=== PATIENT | male | born 2005 | race Hispanic/Latino ===

== ENCOUNTER 2025-01-26 21:33 | Emergency (ER) | payer MEDICAID, OTHER ==
[~2025-01-26] VITALS: Ht 180.3 cm; Wt 157.9 kg
[2025-01-26 21:59] LABS: SARS-CoV-2, RNA, NAAT NEGATIVE SARS CoV-2 (NEGATIVE)
[2025-01-26 22:08] LABS: INFLUENZA TYPE A Negative For Type A (NEGATIVE); INFLUENZA TYPE B Negative For Type B (NEGATIVE)
--- NOTE | 2025-01-26 23:45 | NUR ---
ASSUMED PT CARE
[2025-01-26] MEDS ORDERED: IOHEXOL 350 MG/ML 100ML INFUS..BTL IV ONE (23:56)
[2025-01-27 00:04] VITALS: PULSE 96; RESP 18
[2025-01-27] MEDS: ALBUTEROL 0.083% 2.5 MG/3 ML INH IH ONE (00:04)
--- NOTE | 2025-01-27 00:08 | ERN ---
ED Note History of Present Illness Stated Complaint: C/O SOB Chief Complaint: Shortness of Breath Time Seen by MD: 21:39 Dictation: This is a 19-year-old male who is extremely obese presents to the emergency room with his mother with complaints of shortness of breath for the past 2 weeks. He stated that he is short of breath all the time even when he is sitting and feels like he does not get enough air into the lungs. He denied any fever chills or rigors. No cough sputum or hemoptysis. He does not have a history of hypertension or any other comorbidities other than ADHD for which he used to take a stimulant. Since his graduation from high school, mother indicates that he is not on any stimulant Patient and mother and to do admit to gaining more weight. Patient's mother indicated that he is quite sedentary and place video games all day and night Temperature 98.6 pulse 93 respirations 20 blood pressure 144/89 with a pulse oximetry of 100% on room air Allergies: Coded Allergies: No Known Drug Allergies (Unverified Allergy, Unknown, 01/26/25) Home Meds Active Scripts Albuterol Sulfate (Ventolin Hfa/Proventil Hfa/Proair Hfa) 90 Mcg Puff, 1-2 PUFF IH Q4H PRN for SHORTNESS OF BREATH for 5 Days, #1 INH 0 Refills PHARMACY TO DISPENSE 1 INHALER FOR USE Prov:ZOEY CONDON MD 01/27/25 Prednisone (Prednisone) 20 Mg Tablet, 1 TAB PO AD for 6 Days, #14 TAB 0 Refills TAKE 1 TAB BY MOUTH THREE TIMES PER DAY X3 DAYS, THEN TAKE 1 TAB BY MOUTH TWICE A DAY X2 DAYS, THEN TAKE 1 TAB BY MOUTH ONCE A DAY X1 DAY. Prov:ZOEY CONDON MD 01/27/25 Past Medical History Past Medical History: Other Additional Past Medical Hx: HX OF ADHD Surgical History: None Family History: Negative Social History: Negative RN Note Reviewed/Agreed w/PFSH: Yes Review of System Dictation Constitutional: Negative for fever,chills, and weight loss Eyes: Negative for injury, pain,redness, and discharge ENT: Negative for injury,pain or swelling Cardiovascular: Negative for chest pain, palpitations, and edema Respiratory: Positive for shortness of breath, denied cough, and wheezing, Abdomen/GI: Negative for abdominal pain, nausea, vomiting, diarrhea, and constipation Back: Negative for injury and pain : Negative for injury, bleeding and discharge MS/Extremity: Negative for injury and deformity Skin: Negative for rash, and discoloration Neuro: Negative for headache, weakness, numbness, tingling, and seizure Psych: Negative for suicide ideation, homicidal ideation, and hallucinations Initial Vital Sign VS Vital Signs Date Time Temp Pulse Resp B/P (MAP) Pulse Ox O2 Delivery O2 Flow Rate FiO2 01/26/25 21:34 98.6 93 20 144/89 100 Room Air 01/26/25 23:48 0 21 Physical Exam Dictation General: awake, alert, NAD extremely obese Head/Face: Normocephalic, atraumatic Eyes: PERRL, EOMI, vision at baseline ENT: oral cavity clear, TMs clear, no signs of infection Neck: Trachea midline, supple, no nuchal rigidity Cardiovascular: RRR, normal S1/S2, No MRGs, no JVD Respiratory: Decreased air entry with prolonged expiratory phase, no respiratory distress, No rales or wheezes Abdomen: Soft, non-tender, non-distended, normal bowel sounds, no guarding or rebound. Skin: Warm, dry, normal turgor, no rash MS/Extremity: Pulses equal, no cyanosis, neurovascular intact, FROM Neuro: COAx4, GCS 15, strength 5/5, CN 2-12 intact, normal cerebellar exam, normal gait, Psych: Generally anxious Extremities-trace edema without any palpable cords, Homans sign is negative Results (Laboratory/Radiology) Laboratory/Radiology Laboratory Tests Test 01/26/25 21:37 01/27/25 00:12 Influenza Type A Antigen Negative For Type A Influenza Type B Antigen Negative For Type B SARS-CoV-2, RNA, NAAT NEGATIVE SARS CoV-2 White Blood Count 10.4 K/uL (4.8-10.8) Red Blood Count 5.34 MIL/uL (4.50-6.20) Hemoglobin 15.1 g/dL (14.0-18.0) Hematocrit 45.7 % (42-54) Mean Corpuscular Volume 85.6 fL (80-100) Mean Corpuscular Hemoglobin 28.3 pg (27.0-33.0) Mean Corpuscular Hemoglobin Concent 33.0 g/dL (32.0-36.0) Red Cell Distribution Width 13.1 % (11.0-15.5) Platelet Count 333 K/uL (130-400) Mean Platelet Volume 10.4 fL (7.5-10.5) Immature Granulocyte % (Auto) 0.4 % (0-1) Neutrophils (%) (Auto) 60.3 % (40.0-77.0) Lymphocytes (%) (Auto) 30.7 % (21.0-51.0) Monocytes (%) (Auto) 5.9 % (3.0-13.0) Eosinophils (%) (Auto) 2.0 % (0.0-8.0) Basophils (%) (Auto) 0.7 % (0.0-5.0) Neutrophils # (Auto) 6.2 K/uL (1.8-7.7) Lymphocytes # (Auto) 3.2 K/uL (1.0-4.8) Monocytes # (Auto) 0.6 K/uL (0.1-1.0) Eosinophils # (Auto) 0.21 K/uL (0.00-0.70) Basophils # (Auto) 0.07 K/uL (0.00-0.20) Absolute Immature Granulocyte (auto 0.04 K/uL (0-1) Nucleated Red Blood Cells 0.0 % (0.0-0.19) Sodium Level 142 mmol/L (136-145) Potassium Level 3.7 mmol/L (3.5-5.1) Chloride Level 105 mmol/L (101-111) Carbon Dioxide Level 26 mmol/L (21-32) Blood Urea Nitrogen 19 mg/dL (7-18) H Creatinine 1.0 mg/dL (0.5-1.3) Glomerular Filtration Rate Calc 111 mL/min (>90) Random Glucose 103 mg/dL (70-105) Total Calcium 9.2 mg/dL (8.5-10.1) Labs Reviewed?: Yes EKG Comment: 12 lead EKG done on 01/27/2025 at 12:17 a.m. showed a heart rate of 100, WI interval 151, QRS duration 93, QT/QTC 341/442 Impression sinus tachycardia with nonspecific ST-T changes throughout. Possibility of S1 Q3 with questionable T inversion in 3 versus flattening noted. EKG rhythm strip shows sinus tachycardia with nonspecific changes Interpreted by ER MD Dr. Condon CT Scan Comment: REASON: sedentary, extreme obseity, Shortness of breath ORDERING PHYSICIAN: ZOEY CONDON MD PROCEDURE: CHES PE - CT CHEST PE PROTOCOL WWO CONT EXAM: CTA examination of the chest CLINICAL HISTORY: Shortness of breath. Incidentally. Extremely obese. TECHNIQUE: Thin collimated axial CTA images of the chest were obtained, and sagittal and coronal reformatted images were also submitted. A CT scan is done according to ALARA (As Low as Reasonably Achievable). COMPARISON: None provided. FINDINGS: The lungs are clear. No acute infiltrate, effusion, or pneumothorax. No pericardial effusion. The heart size is within normal limits. No thoracic aortic aneurysm or dissection. No filling defect or pulmonary thromboembolism. No axillary, supraclavicular, or mediastinal lymphadenopathy. Limited views of the upper abdomen demonstrate fatty liver. No acute or suspicious osseous abnormality. IMPRESSION: No pulmonary thromboembolism. Fatty liver. /[place] DICTATED BY: DAYLIN BELLO Jr., MD DATE: 01/27/25319 ELECTRONICALLY SIGNED BY: DAYLIN BELLO Jr., MD DATE: 01/27/25319 ED Course ED Course Orders Procedure Category Date Status Time Influenza Type A & B, LAB 01/26/25 Complete Rapid 21:38 Covid Rna Naat LAB 01/26/25 Complete 21:38 Chest 1vw RAD 01/26/25 Resulted 21:54 Drug Screen Urine LAB 01/26/25 Logged 21:54 Methylprednisolone PHA 01/27/25 Complete Succ 125mg (Solu-Medr 00:00 Albuterol 0.083% PHA 01/27/25 Complete 2.5mg/3ml (Proventil 00:00 Ct Chest Pe Protocol CT 01/26/25 Resulted Wwo Cont 23:56 Cbc With Differential LAB 01/27/25 Complete 00:05 12 Lead Ekg Tracing- EKG 01/27/25 Logged Technical 00:05 Basic Metabolic Panel LAB 01/27/25 Complete 00:05 Alprazolam 0.5mg PHA 01/27/25 Complete (Xanax 0.5mg) 00:30 Iohexol (Omnipaque) PHA 01/27/25 Complete 01:34 Current Medications Medications (Trade) Dose Ordered Sig/Nieves Route PRN Reason Start Time Stop Time Status Last Admin Dose Admin Albuterol Sulfate (Proventil 0.083% 2.5mg/3ml) 2.5MG ONCE ONCE IH 01/27/25 00:00 01/27/25 00:01 DC 01/27/25 00:04 Alprazolam (XANax 0.5MG) 0.5 mg ONCE ONCE PO 01/27/25 00:30 01/27/25 00:31 DC 01/27/25 00:33 Iohexol (Omnipaque) 35,000 mg STK-MED ONCE IV 01/27/25 01:34 01/27/25 01:34 DC Methylprednisolone Sodium Succinate (Solu-medROL 125MG) 60 mg ONCE ONCE IVP 01/27/25 00:00 01/27/25 00:01 DC 01/27/25 00:10 Vital Signs Date Time Temp Pulse Resp B/P (MAP) Pulse Ox O2 Delivery O2 Flow Rate FiO2 01/27/25 00:04 96 18 01/26/25 23:48 98.1 89 20 130/66 99 Room Air* 0 21 01/26/25 21:34 98.6 93 20 144/89 100 Room Air We will perform diagnostic labs, advanced imaging and administer medications according to the patient's complaint. Once the results are available, will review and personally interpreted the labs to rule out any acute life- threatening emergency the trach require immediate intervention and treatment. I will then re-evaluate the patient after treatment and diagnostic exams have return to determine whether the patient requires any further testing, can safely be discharged home or need further admission to hospital for additional treatment and evaluation. Medical Decision Making MDM Differential diagnosis: Reactive airway disease, bronchiolitis and small airway obstruction due to microaspiration, restrictive lung disease, deconditioning due to obesity and lack of exercise, pulmonary thromboembolic disease. A component of anxiety certainly could be contributing. Patient has not given a urine sample and the possibility of substance use can not be ruled out This is a 19-year-old male who is extremely obese presents to the emergency room with his mother with complaints of shortness of breath for the past 2 weeks. He stated that he is short of breath all the time even when he is sitting and feels like he does not get enough air into the lungs. He denied any fever chills or rigors. No cough sputum or hemoptysis. He does not have a history of hypertension or any other comorbidities other than ADHD for which he used to take a stimulant. Since his graduation from high school, mother indicates that he is not on any stimulant Patient and mother and to do admit to gaining more weight. Patient's mother indicated that he is quite sedentary and place video games all day and night Temperature 98.6 pulse 93 respirations 20 blood pressure 144/89 with a pulse oximetry of 100% on room air 11:30 p.m. swabs for influenza, COVID and strep infection came back negative. 11:50 p.m. chest x-ray shows normal heart with no obvious evidence of any pulmonary vascular congestion pleural effusions or pneumothorax. 12:45 a.m. CBC-with a normal limits. BNP 7 shows a BUN and creatinine of [address] chest PE protocol is still pending 2:[address] chest PE protocol finally done and reported. No evidence of any PE I updated the patient and his mother on all the workup so far test results and I recommended the patient should be referred to flying instructor for further workup including pulmonary function studies and polysomnography. I also recommended pursuing an echocardiogram if necessary to evaluate pulmonary artery pressures. They both verbalized full understanding and we will follow up with the primary care physician and obtain referrals I also recommended a very short trial of prednisone and a bronchodilator and they are agreeable Rationale: Tests considered and ordered secondary to shared decision making include: Previous outside records reviewed: Old ER visits. Risk of complication and/or morbidity or mortality of patient management: None Medications-Per medication reconciliation Need for hospitalization: Patient does not meet criteria for hospitalization. Need for emergency major/minor surgery: No There are no social concerns with this patient. Prescription drug management Prescriptions will include symptomatic care Patient's prior external medical records from other ER visits were reviewed by me as indicated. Prior testing and results from previous visits were reviewed. Prior tests were taken into account with medical decision making and resource ut ilization, independent historian/historians were used to obtain complete medical history. I independently interpreted the test that were performed, results were reviewed by me and considered findings on radiology if ordered. Medical management and examination interpretation discussions were had by me with other qualified healthcare professionals as indicated for the patient's car e. Problem List Problem List: (1) Reactive airway disease (2) Restrictive lung disease secondary to obesity (3) Morbid obesity DX & DISP Disposition: Discharge Departure Impression: Primary Impression: Restrictive lung disease secondary to obesity Additional Impressions: Reactive airway disease, Morbid obesity Condition: Stable Scripts Albuterol Sulfate (Ventolin Hfa/Proventil Hfa/Proair Hfa) 90 Mcg Puff 1-2 PUFF IH Q4H PRN for SHORTNESS OF BREATH for 5 Days, #1 INH 0 Refills PHARMACY TO DISPENSE 1 INHALER FOR USE Prov: ZOEY CONDON MD 01/27/25 Prednisone (Prednisone) 20 Mg Tablet 1 TAB PO AD for 6 Days, #14 TAB 0 Refills TAKE 1 TAB BY MOUTH THREE TIMES PER DAY X3 DAYS, THEN TAKE 1 TAB BY MOUTH TWICE A DAY X2 DAYS, THEN TAKE 1 TAB BY MOUTH ONCE A DAY X1 DAY. Prov: ZOEY CONDON MD 01/27/25 Additional Instructions: Patient and the caregiver have been informed of all the diagnostic tests and the imaging conducted during the today's visit to the emergency room and has verbalized understanding of the results I have personally reviewed and interpreted all diagnostic exams performed here in the ER today as well as the vital signs documented by the nursing staff. The patient is now being discharged to home and should follow up with the primary care physician or the specialist as directed by the ER staff. Follow-up with primary care provider in 1 to 2 days. Take medications as dire cted here in the emergency room. Okay to continue home medications unless otherwise discussed during your visit in the emergency room today. Return to your nearest emergency room if symptoms worsen or if there is no improvement. Call 911 if you need immediate assistance. Take Tylenol or Motrin [id number] as needed and if no contraindications are present. Increase oral hydration. A wound culture or urine culture was ordered here in the emergency room department please follow-up with primary care provider and advise them to get repeat ports from our facility. If you had any [place] wrap/splints that were applied here, please do not remove them until you see your primary care or specialty. Referrals: BLAYNE SHAIKH DO (PCP) ZOEY CONDON MD Jan 27, 2025 00:08
[2025-01-27 00:22] LABS: IMMATURE GRANULOCYTE ABSOLUTE 0.04 K/uL (0-1); NUCLEATED RED BLOOD CELLS 0.0 % (0.0-0.19); PLATELET COUNT (AUTO) 333 K/uL (130-400); RED BLOOD CELL COUNT(AUTO) 5.34 MIL/uL (4.50-6.20); RED CELL DISTRIBUTION WIDTH 13.1 % (11.0-15.5); WHITE BLOOD COUNT (AUTO) 10.4 K/uL (4.8-10.8)
--- NOTE | 2025-01-27 00:28 | HMCIMG ---
EXAM: CR Chest, 1 View. CLINICAL HISTORY: dyspnea COMPARISON: None provided. FINDINGS: LUNGS: There is no mass, infiltrate, or acute pulmonary abnormality. PLEURAL SPACES: No pleural effusion or pneumothorax. MEDIASTINUM: Cardiac size and mediastinal contours within normal limits. BONES: No acute osseous abnormality. IMPRESSION: No acute cardiopulmonary pathology is evident. /[place]
[2025-01-27 00:34] LABS: CREATININE 1.0 mg/dL (0.5-1.3); GLOMERULAR FILTR. RATE CALC 111.0 mL/min (>90); GLUCOSE,RANDOM 103.0 mg/dL (70-105); SODIUM SERUM 142.0 mmol/L (136-145); UREA NITROGEN, BLOOD 19.0 mg/dL (7-18)
[2025-01-27] MEDS ORDERED: IOHEXOL 350 MG/ML 100ML INFUS..BTL IV ONE (01:34)
--- NOTE | 2025-01-27 02:21 | HMCIMG ---
EXAM: CTA examination of the chest CLINICAL HISTORY: Shortness of breath. Incidentally. Extremely obese. TECHNIQUE: Thin collimated axial CTA images of the chest were obtained, and sagittal and coronal reformatted images were also submitted. A CT scan is done according to ALARA (As Low as Reasonably Achievable). COMPARISON: None provided. FINDINGS: The lungs are clear. No acute infiltrate, effusion, or pneumothorax. No pericardial effusion. The heart size is within normal limits. No thoracic aortic aneurysm or dissection. No filling defect or pulmonary thromboembolism. No axillary, supraclavicular, or mediastinal lymphadenopathy. Limited views of the upper abdomen demonstrate fatty liver. No acute or suspicious osseous abnormality. IMPRESSION: No pulmonary thromboembolism. Fatty liver. /[place]
[2025-01-27] MEDS ORDERED: PRED20TA3 PO (02:28)
[2025-01-27] MEDS ORDERED: ALBUHFA IH (02:28)
[2025-01-27 03:00] VITALS: BP 120/62; PULSE 98; RESP 18; TEMP 98.1; O2SAT 100
--- NOTE | 2025-01-27 05:01 | EKG ---
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
== END 2025-01-27 03:01 | disposition home or self-care (01) ==
LOC: EDH 21:33
DX: J45.909 Unspecified asthma, uncomplicated (principal); E66.01 Morbid (severe) obesity due to excess calories; Z20.822 Contact with and (suspected) exposure to COVID-19; Z79.899 Other long term (current) drug therapy
CPT/HCPCS: 99285; 71270; 71045; 87635; 80048; 85025; 87804 ×2; 36415; 96374; 93005; 94640; Q9967; J2919